=== PATIENT | male | born 1990 | race Caucasian/White ===

== ENCOUNTER 2017-03-26 15:00 | Emergency (ER) | payer OTHER ==
[2017-03-26 15:11] VITALS: TEMP 98.8
[2017-03-26] MEDS ORDERED: NS 1,000 ML IV ONE (15:12)
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
[2017-03-26 15:19] LABS: % IMMATURE GRANULYOCYTES 0.4 % (0.0-1.1); ABSOLUTE IMMATURE GRANULOCYTES 0.04 10^3/uL (0.00-0.10); ADD DIFF? NO; ADD MORPH? NO; ADD SCAN? NO; ATYPICAL LYMPHOCYTE FLAG 10 (0-99); FRAGMENT RBC FLAG 0 (0-99); LEFT SHIFT FLG 0 (0-99); LIPEMIA HEMOLYSIS FLAG 90 (0-99); MEAN CELL HEMOGLOBIN 30.7 pg (27.9-34.1); MEAN CELL HEMOGLOBIN CONCENTR. 34.7 g/dL (32.4-36.7); MEAN CELL VOLUME 88.6 fL (81.5-99.8); MEAN PLATELET VOLUME 11.5 fL (8.7-11.7); PLATELET CLUMPS FLAG 20 (0-99); PLATELET COUNT 224 10^3/uL (150-400); RED BLOOD CELL COUNT 5.53 10^6/uL (4.40-6.38); RED CELL DISTRIBUTION WIDTH 13.5 % (11.5-15.2)
[2017-03-26 15:28] LABS: ANION GAP 15 mEq/L (8-16); CALCIUM 9.5 mg/dL (8.5-10.4); CARBON DIOXIDE 21 mEq/l (22-31); CHLORIDE 103 mEq/L (97-110); CREATININE 1.1 mg/dL (0.7-1.3); ETHANOL SERUM < 10 mg/dL (0-10); GLOMERULAR FILTRATION RATE > 60; GLUCOSE 141 mg/dL (70-100); POTASSIUM 3.8 mEq/L (3.5-5.2); SODIUM 139 mEq/L (134-144)
[2017-03-26] MEDS ORDERED: IOPAMIDOL (ISOVUE-300) 100 ML BTL ONE (15:30)
[2017-03-26] MEDS ORDERED: fentaNYL 100 MCG/2 ML INJ IVP ONE (16:28)
[2017-03-26] MEDS ORDERED: fentaNYL 100 MCG/2 ML INJ ONE (16:29)
[2017-03-26 18:55] VITALS: RESP 16
[2017-03-26 19:53] VITALS: BP 133/82; PULSE 80; O2SAT 95
== END 2017-03-26 19:53 | disposition home or self-care (01) ==
LOC: EDUNIT#
DX: S00.83XA Contusion of other part of head, initial encounter (principal); E86.9 Volume depletion, unspecified; Y04.8XXA Assault by other bodily force, initial encounter
CPT/HCPCS: 96374; G0480; J3010; L0172; Q9967